=== PATIENT | male | born 1995 | race Caucasian/White ===

== ENCOUNTER 2019-11-20 13:25 | Emergency (ER) | payer OTHER ==
[~2019-11-20] VITALS: Ht 190.5 cm; Wt 81.6 kg
[2019-11-20] MEDS ORDERED: MOMETASONE FURO15 G2 TP (13:43)
[2019-11-20] MEDS ORDERED: NYSTATIN15 G2 TP (13:44)
[2019-11-20] MEDS ORDERED: MUPIROCIN22 GM TOP (14:24)
[2019-11-20] MEDS ORDERED: AMOX1TAB5 PO (14:24)
== END 2019-11-20 14:47 | disposition home or self-care (01) ==
LOC: ER 13:25
DX: R21 Rash and other nonspecific skin eruption (principal)